=== PATIENT | female | born 2000 | race Caucasian/White ===

== ENCOUNTER 2021-11-05 18:10 | Emergency (ER) | payer OTHER ==
[~2021-11-05] VITALS: Ht 149.9 cm; Wt 52.7 kg
[2021-11-05] MEDS ORDERED: PRAZ1CAP PO (18:19)
[2021-11-05] MEDS ORDERED: LUNE2TAB23 PO (18:19)
[2021-11-05] MEDS ORDERED: CLONI1TA PO (18:19)
[2021-11-05] MEDS ORDERED: [UNRECOGNIZED DRUG - CODE] IL (18:19)
[2021-11-05] MEDS ORDERED: ZOLO50TA PO (18:19)
[2021-11-05 19:50] LABS: HEMOGLOBIN 13.5 g/dl (12.0-15.5); MEAN CORPUSCULAR HEMOGLOBIN 29.3 pg (27.0-33.0); MEAN CORPUSCULAR HGB CONC 32.9 g/dl (32.0-36.5); MEAN CORPUSCULAR VOLUME 88.9 fl (80.0-96.0); PLATELET COUNT, AUTOMATED 284 10^3/uL (150-450); RED BLOOD COUNT 4.61 10^6/uL (4.00-5.40); WHITE BLOOD COUNT 7.7 10^3/uL (4.0-10.0)
[2021-11-05 20:05] LABS: HCG, SERUM QUALITATIVE NEGATIVE (NEGATIVE)
[2021-11-05 20:20] LABS: ALBUMIN 4.3 GM/DL (3.2-5.2); ALT/SGPT 25 U/L (12-78); BILIRUBIN,DIRECT 0.1 MG/DL (0.0-0.2); BILIRUBIN,TOTAL 0.5 MG/DL (0.2-1.0); BLOOD UREA NITROGEN 11 MG/DL (7-18); CALCIUM LEVEL 9.4 MG/DL (8.5-10.1); CARBON DIOXIDE LEVEL 30 MEQ/L (21-32); CHLORIDE LEVEL 105 MEQ/L (98-107); CREATININE FOR GFR 0.94 MG/DL (0.55-1.30); ETHYL ALCOHOL (ETHANOL) < 0.003 % (0.000-0.010); GLOMERULAR FILTRATION RATE > 60.0 (>60); GLUCOSE, FASTING 94 MG/DL (70-100); POTASSIUM SERUM 4.3 MEQ/L (3.5-5.1); SALICYLATE LEVEL < 1.7 MG/DL (5.0-30.0); SODIUM LEVEL 140 MEQ/L (136-145); TOTAL PROTEIN 7.6 GM/DL (6.4-8.2)
[2021-11-05 20:21] LABS: ACETAMINOPHEN LEVEL < 2.0 UG/ML (10.0-30.0)
[2021-11-05 20:40] LABS: RSV AMPLIFICATION NEGATIVE (NEGATIVE)
[2021-11-05 21:29] LABS: AMPHETAMINES LEVEL URINE NEGATIVE (NEGATIVE); BARBITURATES URINE NEGATIVE (NEGATIVE); BENZODIAZEPINES URINE NEGATIVE (NEGATIVE); CANNABINOIDS URINE NEGATIVE (NEGATIVE); COCAINE METABOLITE URINE NEGATIVE (NEGATIVE); METHADONE URINE NEGATIVE (NEGATIVE); OPIATES URINE NEGATIVE (NEGATIVE); PHENCYCLIDINE URINE NEGATIVE (NEGATIVE)
[2021-11-05] MEDS ORDERED: NICOTINE 21MG/24HR 1 EA TRANSDERMAL TD ONE (23:05)
[2021-11-06] MEDS ORDERED: TEST1INJ3 IM (06:34)
[2021-11-06] MEDS ORDERED: HOME MED LIST COMPLETE! XX SCH (06:35)
[2021-11-06] MEDS ORDERED: hydrOXYzine 25 MG TAB PO ONE (12:40)
[2021-11-06 12:42] VITALS: BP 128/84
== END 2021-11-06 13:01 ==
LOC: M ED 18:10
DX: R45.851 Suicidal ideations (principal); F33.9 Major depressive disorder, recurrent, unspecified; Z91.51 Personal history of suicidal behavior; Z79.899 Other long term (current) drug therapy

== ENCOUNTER 2022-02-05 22:35 | Inpatient (IN) | payer OTHER ==
[~2022-02-05] VITALS: Ht 162.6 cm; Wt 56.0 kg
[~2022-02-05 22:35] MED LIST: CLONI1TA PO; LUNE2TAB23 PO; PRAZ1CAP PO; TEST1INJ3 IM; ZOLO50TA PO; [UNRECOGNIZED DRUG - CODE] IL
[2022-02-06 00:12] LABS: HEMATOCRIT 44.2 % (36.0-47.0); HEMOGLOBIN 14.5 g/dl (12.0-15.5); MEAN CORPUSCULAR HEMOGLOBIN 29.8 pg (27.0-33.0); MEAN CORPUSCULAR HGB CONC 32.8 g/dl (32.0-36.5); MEAN CORPUSCULAR VOLUME 90.9 fl (80.0-96.0); PLATELET COUNT, AUTOMATED 284 10^3/uL (150-450); RED BLOOD COUNT 4.86 10^6/uL (4.00-5.40); WHITE BLOOD COUNT 7.4 10^3/uL (4.0-10.0)
[2022-02-06 00:15] LABS: RSV AMPLIFICATION NEGATIVE (NEGATIVE)
[2022-02-06] MEDS ORDERED: LORazepam 2 MG TAB PO ONE ×2 (00:15→14:55)
[2022-02-06 00:31] LABS: HCG, SERUM QUALITATIVE NEGATIVE (NEGATIVE)
[2022-02-06] MEDS ORDERED: testosterone gel TOP (01:06)
[2022-02-06] MEDS ORDERED: CLON0.2T PO (01:06)
[2022-02-06] MEDS ORDERED: HOME MED LIST COMPLETE! XX SCH (01:10)
[2022-02-06 03:36] LABS: AMPHETAMINES LEVEL URINE NEGATIVE (NEGATIVE); BARBITURATES URINE NEGATIVE (NEGATIVE); BENZODIAZEPINES URINE NEGATIVE (NEGATIVE); CANNABINOIDS URINE NEGATIVE (NEGATIVE); COCAINE METABOLITE URINE NEGATIVE (NEGATIVE); METHADONE URINE NEGATIVE (NEGATIVE); OPIATES URINE NEGATIVE (NEGATIVE); PHENCYCLIDINE URINE NEGATIVE (NEGATIVE)
[2022-02-06 03:54] LABS: ALBUMIN 4.6 GM/DL (3.2-5.2); ALT/SGPT 21 U/L (12-78); BILIRUBIN,DIRECT 0.1 MG/DL (0.0-0.2); BILIRUBIN,TOTAL 0.5 MG/DL (0.2-1.0); BLOOD UREA NITROGEN 11 MG/DL (7-18); CALCIUM LEVEL 9.8 MG/DL (8.5-10.1); CARBON DIOXIDE LEVEL 26 MEQ/L (21-32); CHLORIDE LEVEL 105 MEQ/L (98-107); CREATININE FOR GFR 1.02 MG/DL (0.55-1.30); ETHYL ALCOHOL (ETHANOL) < 0.003 % (0.000-0.010); GLOMERULAR FILTRATION RATE > 60.0 (>60); GLUCOSE, FASTING 113 MG/DL (70-100); POTASSIUM SERUM 4.3 MEQ/L (3.5-5.1); SALICYLATE LEVEL < 1.7 MG/DL (5.0-30.0); SODIUM LEVEL 140 MEQ/L (136-145); TOTAL PROTEIN 7.8 GM/DL (6.4-8.2)
[2022-02-06] MEDS ORDERED: cloNIDine 0.2 MG TAB PO ONE (09:45)
[2022-02-06] MEDS ORDERED: SERTRALINE HCL 50 MG TAB PO ONE (09:45)
[2022-02-06] MEDS ORDERED: ACETAMINOPHEN 325 MG TAB PO ONE ×2 (21:15→21:20)
[2022-02-07] MEDS ORDERED: SERTRALINE HCL 50 MG TAB PO SCH (09:00)
[2022-02-07] MEDS ORDERED: ENTER DRUG NAME HERE (PATIENT'S OWN MED) TOP SCH (09:00)
[2022-02-07] MEDS ORDERED: FORTESTA TOP SCH (09:00)
[2022-02-07] MEDS ORDERED: cloNIDine 0.2 MG TAB PO SCH (09:00)
[2022-02-07] MEDS ORDERED: MAALOX 30 ML SUSP *UDC PO PRN (11:45)
[2022-02-07] MEDS ORDERED: traZODone 50 MG TAB PO PRN (11:45)
[2022-02-07 13:43] LABS: ACETAMINOPHEN LEVEL < 2.0 UG/ML (0.0-30.0)
[2022-02-07] MEDS: diphenhydrAMINE 25MG CAP PO PRN (15:20)
[2022-02-07] MEDS: NICOTINE 21MG/24HR 1 EA TRANSDERMAL TD SCH (15:28)
[2022-02-07 16:33] VITALS: BP 135/91
[2022-02-07] MEDS: hydrOXYzine 50 MG TAB PO PRN (18:25)
[2022-02-07] MEDS ORDERED: LORazepam 1 MG TAB PO ONE (19:50)
[2022-02-07] MEDS: cloNIDine 0.2 MG TAB PO SCH (20:32)
[2022-02-07] MEDS ORDERED: PRAZOSIN 1 MG CAP PO SCH (21:00)
[2022-02-08] MEDS: hydrOXYzine 50 MG TAB PO PRN ×2 (06:25→21:49)
[2022-02-08 06:51] VITALS: BP 112/80
[2022-02-08] MEDS ORDERED: ENTER DRUG NAME HERE (PATIENT'S OWN MED) TOP SCH (09:00)
[2022-02-08] MEDS: NICOTINE 21MG/24HR 1 EA TRANSDERMAL TD SCH (09:00)
[2022-02-08] MEDS ORDERED: SERTRALINE HCL 50 MG TAB PO SCH (09:00)
[2022-02-08] MEDS: cloNIDine 0.2 MG TAB PO SCH ×2 (09:06→21:00)
[2022-02-08] MEDS: TESTOSTERONE TOP SCH (09:11)
[2022-02-08] MEDS: MOM 30ML SUSPENSION UDC PO PRN (14:52)
[2022-02-08] MEDS: ARIPiprazole 2 MG TAB PO SCH (21:49)
[2022-02-08] MEDS: PRAZOSIN 1 MG CAP PO SCH (22:18)
[2022-02-09 06:21] VITALS: BP 149/69
[2022-02-09 07:26] LABS: CHOLESTEROL RISK RATIO 4.428 (<5)
[2022-02-09] MEDS: NICOTINE 21MG/24HR 1 EA TRANSDERMAL TD SCH (09:00)
[2022-02-09] MEDS: SERTRALINE 100 MG TAB PO SCH (09:52)
[2022-02-09] MEDS: TESTOSTERONE TOP SCH (09:57)
[2022-02-09] MEDS: cloNIDine 0.2 MG TAB PO SCH ×2 (10:00→20:45)
[2022-02-09] MEDS: LORazepam 1 MG TAB PO PRN (11:57)
[2022-02-09] MEDS: IBUPROFEN 400MG TAB PO PRN (17:52)
[2022-02-09 18:16] VITALS: BP 113/77
[2022-02-09] MEDS: ARIPiprazole 2 MG TAB PO SCH (20:45)
[2022-02-09] MEDS: QUEtiapine FUMERATE XR 50MG TABER PO SCH (20:45)
[2022-02-09] MEDS: PRAZOSIN 1 MG CAP PO SCH (20:45)
[2022-02-09] MEDS: MOM 30ML SUSPENSION UDC PO PRN (20:49)
[2022-02-10] MEDS: LORazepam 1 MG TAB PO PRN (01:30)
[2022-02-10] MEDS: NICOTINE 21MG/24HR 1 EA TRANSDERMAL TD SCH (09:00)
[2022-02-10] MEDS: SERTRALINE 100 MG TAB PO SCH (09:45)
[2022-02-10] MEDS: cloNIDine 0.2 MG TAB PO SCH ×2 (09:46→14:23)
[2022-02-10] MEDS: TESTOSTERONE TOP SCH (09:49)
[2022-02-10 16:45] VITALS: BP 141/63
[2022-02-10] MEDS: PRAZOSIN 1 MG CAP PO SCH (21:00)
[2022-02-10] MEDS: clonazePAM 0.5 MG TAB PO SCH (21:13)
[2022-02-10] MEDS: ARIPiprazole 2 MG TAB PO SCH (21:14)
[2022-02-10] MEDS: QUEtiapine FUMERATE XR 50MG TABER PO SCH (21:14)
[2022-02-10] MEDS: hydrOXYzine 50 MG TAB PO PRN (23:58)
[2022-02-10] MEDS: QUEtiapine FUMARATE 25 MG TAB PO PRN (23:58)
[2022-02-11 06:19] VITALS: BP 130/67
[2022-02-11] MEDS: NICOTINE 21MG/24HR 1 EA TRANSDERMAL TD SCH (08:52)
[2022-02-11] MEDS: clonazePAM 0.5 MG TAB PO SCH ×2 (08:54→20:57)
[2022-02-11] MEDS: SERTRALINE 100 MG TAB PO SCH (08:54)
[2022-02-11] MEDS: TESTOSTERONE TOP SCH (08:55)
[2022-02-11] MEDS: cloNIDine 0.2 MG TAB PO SCH (09:00)
[2022-02-11] MEDS: hydrOXYzine 50 MG TAB PO PRN ×2 (11:52→19:43)
[2022-02-11 18:16] VITALS: BP 153/98
[2022-02-11] MEDS: IBUPROFEN 400MG TAB PO PRN (20:58)
[2022-02-11] MEDS: ARIPiprazole 2 MG TAB PO SCH (20:58)
[2022-02-11] MEDS: QUEtiapine FUMARATE 25 MG TAB PO SCH (20:59)
[2022-02-11] MEDS: PRAZOSIN 1 MG CAP PO SCH (21:03)
[2022-02-11] MEDS ORDERED: cloNIDine 0.1MG TABLET PO ONE (21:45)
[2022-02-12 06:19] VITALS: BP 144/68
[2022-02-12] MEDS: NICOTINE 21MG/24HR 1 EA TRANSDERMAL TD SCH (09:00)
[2022-02-12] MEDS: SERTRALINE 100 MG TAB PO SCH (09:07)
[2022-02-12] MEDS: clonazePAM 0.5 MG TAB PO SCH ×2 (09:07→21:58)
[2022-02-12] MEDS: TESTOSTERONE TOP SCH (09:07)
[2022-02-12] MEDS: QUEtiapine FUMARATE 25 MG TAB PO PRN (12:55)
[2022-02-12 18:00] VITALS: BP 142/86
[2022-02-12] MEDS: PRAZOSIN 1 MG CAP PO SCH (21:58)
[2022-02-12] MEDS: QUEtiapine FUMARATE 25 MG TAB PO SCH (21:58)
[2022-02-12] MEDS: ARIPiprazole 2 MG TAB PO SCH (21:58)
[2022-02-13] MEDS: hydrOXYzine 50 MG TAB PO PRN ×3 (02:54→19:41)
[2022-02-13 06:58] VITALS: BP 139/82
[2022-02-13] MEDS: SERTRALINE 100 MG TAB PO SCH (08:47)
[2022-02-13] MEDS: NICOTINE 21MG/24HR 1 EA TRANSDERMAL TD SCH (08:47)
[2022-02-13] MEDS: clonazePAM 0.5 MG TAB PO SCH ×2 (08:47→21:10)
[2022-02-13] MEDS: TESTOSTERONE TOP SCH (09:12)
[2022-02-13] MEDS: diphenhydrAMINE 25MG CAP PO PRN ×2 (09:32→19:41)
[2022-02-13] MEDS: QUEtiapine FUMARATE 25 MG TAB PO PRN (09:32)
[2022-02-13] MEDS: ARIPiprazole 2 MG TAB PO SCH (21:10)
[2022-02-13] MEDS: PRAZOSIN 1 MG CAP PO SCH (21:10)
[2022-02-13] MEDS: QUEtiapine FUMARATE 25 MG TAB PO SCH (21:11)
[2022-02-14 06:12] VITALS: BP 148/89
[2022-02-14] MEDS: clonazePAM 0.5 MG TAB PO SCH ×2 (09:00→20:15)
[2022-02-14] MEDS: SERTRALINE 100 MG TAB PO SCH (09:00)
[2022-02-14] MEDS: NICOTINE 21MG/24HR 1 EA TRANSDERMAL TD SCH (09:00)
[2022-02-14] MEDS: TESTOSTERONE TOP SCH (11:26)
[2022-02-14] MEDS: hydrOXYzine 50 MG TAB PO PRN ×2 (12:59→23:44)
[2022-02-14] MEDS: MOM 30ML SUSPENSION UDC PO PRN (14:33)
[2022-02-14 16:12] VITALS: BP 123/90
[2022-02-14] MEDS: QUEtiapine FUMARATE 25 MG TAB PO SCH (20:15)
[2022-02-14] MEDS: ARIPiprazole 2 MG TAB PO SCH (20:15)
[2022-02-14] MEDS: PRAZOSIN 1 MG CAP PO SCH (20:16)
[2022-02-14] MEDS: diphenhydrAMINE 25MG CAP PO PRN (23:44)
[2022-02-15 06:15] VITALS: BP 128/88
[2022-02-15] MEDS: NICOTINE 21MG/24HR 1 EA TRANSDERMAL TD SCH (09:00)
[2022-02-15] MEDS: clonazePAM 0.5 MG TAB PO SCH ×2 (09:02→20:22)
[2022-02-15] MEDS: SERTRALINE 100 MG TAB PO SCH (09:02)
[2022-02-15] MEDS: TESTOSTERONE TOP SCH (09:09)
[2022-02-15] MEDS: hydrOXYzine 50 MG TAB PO PRN (15:20)
[2022-02-15 16:22] VITALS: BP 134/84
[2022-02-15] MEDS: QUEtiapine FUMARATE 25 MG TAB PO PRN (19:17)
[2022-02-15] MEDS: diphenhydrAMINE 25MG CAP PO PRN (19:17)
[2022-02-15] MEDS: QUEtiapine FUMARATE 25 MG TAB PO SCH (20:21)
[2022-02-15] MEDS: ARIPiprazole 2 MG TAB PO SCH (20:21)
[2022-02-15] MEDS: PRAZOSIN 1 MG CAP PO SCH (20:22)
[2022-02-16 06:36] VITALS: BP 137/76
[2022-02-16] MEDS: SERTRALINE 100 MG TAB PO SCH (07:50)
[2022-02-16] MEDS: clonazePAM 0.5 MG TAB PO SCH (07:51)
[2022-02-16] MEDS: TESTOSTERONE TOP SCH (07:52)
[2022-02-16] MEDS: NICOTINE 21MG/24HR 1 EA TRANSDERMAL TD SCH (07:53)
[2022-02-16 16:13] VITALS: BP 134/85
[2022-02-16] MEDS: QUEtiapine FUMARATE 25 MG TAB PO PRN (17:37)
[2022-02-16] MEDS: diphenhydrAMINE 25MG CAP PO PRN (17:37)
[2022-02-16] MEDS: hydrOXYzine 50 MG TAB PO PRN (20:41)
[2022-02-16] MEDS: ARIPiprazole 2 MG TAB PO SCH (20:42)
[2022-02-16] MEDS: QUEtiapine FUMARATE 25 MG TAB PO SCH (20:42)
[2022-02-16] MEDS: clonazePAM 1 MG TAB PO SCH (20:42)
[2022-02-16] MEDS: MOM 30ML SUSPENSION UDC PO PRN (20:49)
[2022-02-16] MEDS: PRAZOSIN 1 MG CAP PO SCH (20:49)
[2022-02-17 07:21] VITALS: BP 154/88
[2022-02-17] MEDS: NICOTINE 21MG/24HR 1 EA TRANSDERMAL TD SCH (07:57)
[2022-02-17] MEDS: clonazePAM 1 MG TAB PO SCH ×2 (08:03→21:10)
[2022-02-17] MEDS: SERTRALINE 100 MG TAB PO SCH (08:03)
[2022-02-17] MEDS: TESTOSTERONE TOP SCH (08:06)
[2022-02-17] MEDS: QUEtiapine FUMARATE 25 MG TAB PO PRN (15:48)
[2022-02-17] MEDS: hydrOXYzine 50 MG TAB PO PRN (15:48)
[2022-02-17 17:05] VITALS: BP 140/87
[2022-02-17] MEDS: ARIPiprazole 2 MG TAB PO SCH (21:10)
[2022-02-17] MEDS: QUEtiapine FUMARATE 25 MG TAB PO SCH (21:10)
[2022-02-17] MEDS: PRAZOSIN 1 MG CAP PO SCH (21:10)
[2022-02-17] MEDS: IBUPROFEN 400MG TAB PO PRN (21:18)
[2022-02-18 06:09] VITALS: BP 142/90
[2022-02-18] MEDS: NICOTINE 21MG/24HR 1 EA TRANSDERMAL TD SCH (09:00)
[2022-02-18] MEDS: clonazePAM 1 MG TAB PO SCH ×2 (09:22→20:14)
[2022-02-18] MEDS: SERTRALINE 100 MG TAB PO SCH (09:22)
[2022-02-18] MEDS: TESTOSTERONE TOP SCH (09:24)
[2022-02-18] MEDS: DOCUSATE SODIUM 100MG CAPSULE PO PRN (14:08)
[2022-02-18 16:50] VITALS: BP 134/95
[2022-02-18] MEDS: hydrOXYzine 50 MG TAB PO PRN (17:10)
[2022-02-18 20:12] VITALS: BP 117/84
[2022-02-18] MEDS: ARIPiprazole 2 MG TAB PO SCH (20:14)
[2022-02-18] MEDS: QUEtiapine FUMARATE 25 MG TAB PO SCH (20:15)
[2022-02-18] MEDS: PRAZOSIN 1 MG CAP PO SCH (20:15)
[2022-02-19 06:00] VITALS: BP 144/76
[2022-02-19] MEDS: TESTOSTERONE TOP SCH (07:45)
[2022-02-19] MEDS: clonazePAM 1 MG TAB PO SCH ×2 (07:45→21:12)
[2022-02-19] MEDS: SERTRALINE 100 MG TAB PO SCH (07:46)
[2022-02-19] MEDS: NICOTINE 21MG/24HR 1 EA TRANSDERMAL TD SCH (07:46)
[2022-02-19 16:54] VITALS: BP 134/98
[2022-02-19] MEDS: QUEtiapine FUMARATE 25 MG TAB PO PRN (18:55)
[2022-02-19] MEDS: DOCUSATE SODIUM 100MG CAPSULE PO PRN (18:55)
[2022-02-19] MEDS: MOM 30ML SUSPENSION UDC PO PRN (21:12)
[2022-02-19] MEDS: ARIPiprazole 2 MG TAB PO SCH (21:13)
[2022-02-19] MEDS: QUEtiapine FUMARATE 25 MG TAB PO SCH (21:13)
[2022-02-19] MEDS: PRAZOSIN 1 MG CAP PO SCH (21:13)
[2022-02-20 06:24] VITALS: BP 118/81
[2022-02-20] MEDS: NICOTINE 21MG/24HR 1 EA TRANSDERMAL TD SCH (09:00)
[2022-02-20] MEDS: SERTRALINE 100 MG TAB PO SCH (09:30)
[2022-02-20] MEDS: clonazePAM 1 MG TAB PO SCH ×2 (09:30→22:17)
[2022-02-20] MEDS: TESTOSTERONE TOP SCH (09:33)
[2022-02-20] MEDS: IBUPROFEN 400MG TAB PO PRN (14:50)
[2022-02-20 16:12] VITALS: BP 135/83
[2022-02-20] MEDS: diphenhydrAMINE 25MG CAP PO PRN (19:20)
[2022-02-20] MEDS: QUEtiapine FUMARATE 25 MG TAB PO PRN (19:20)
[2022-02-20] MEDS: QUEtiapine FUMARATE 25 MG TAB PO SCH (22:17)
[2022-02-20] MEDS: ARIPiprazole 2 MG TAB PO SCH (22:17)
[2022-02-20] MEDS: PRAZOSIN 1 MG CAP PO SCH (22:18)
[2022-02-21 07:12] VITALS: BP 143/73
[2022-02-21] MEDS: NICOTINE 21MG/24HR 1 EA TRANSDERMAL TD SCH (09:00)
[2022-02-21] MEDS: TESTOSTERONE TOP SCH (09:30)
[2022-02-21] MEDS: clonazePAM 1 MG TAB PO SCH ×2 (09:34→21:07)
[2022-02-21] MEDS: SERTRALINE 100 MG TAB PO SCH (09:35)
[2022-02-21] MEDS: QUEtiapine FUMARATE 25 MG TAB PO PRN (13:45)
[2022-02-21] MEDS: clonazePAM 0.5 MG TAB PO SCH (14:02)
[2022-02-21 21:07] VITALS: BP 137/94
[2022-02-21] MEDS: PRAZOSIN 1 MG CAP PO SCH (21:07)
[2022-02-21] MEDS: QUEtiapine FUMARATE 25 MG TAB PO SCH (21:07)
[2022-02-21] MEDS: ARIPiprazole 2 MG TAB PO SCH (21:08)
[2022-02-22 06:00] VITALS: BP 125/74
[2022-02-22] MEDS: DOCUSATE SODIUM 100MG CAPSULE PO PRN (08:03)
[2022-02-22] MEDS: SERTRALINE 100 MG TAB PO SCH (08:03)
[2022-02-22] MEDS: clonazePAM 1 MG TAB PO SCH (08:04)
[2022-02-22] MEDS: TESTOSTERONE TOP SCH (08:06)
[2022-02-22] MEDS: NICOTINE 21MG/24HR 1 EA TRANSDERMAL TD SCH (08:07)
[2022-02-22] MEDS ORDERED: MINI1CAP PO (13:31)
[2022-02-22] MEDS ORDERED: [UNRECOGNIZED DRUG - OTHER] TOP (13:31)
[2022-02-22] MEDS ORDERED: ZOLO100T PO (13:31)
[2022-02-22] MEDS ORDERED: QUET1TAB17 PO ×2 (13:31)
[2022-02-22] MEDS ORDERED: CLON0.5T2 PO (13:31)
[2022-02-22] MEDS ORDERED: NICO21PAT TD (13:31)
[2022-02-22] MEDS ORDERED: ABIL1TAB13 PO (13:31)
[2022-02-22] MEDS ORDERED: CLON1TAB8 PO (13:31)
[2022-02-22] MEDS: clonazePAM 0.5 MG TAB PO SCH (14:47)
== END 2022-02-22 19:00 | disposition home or self-care (01) | DRG 885 ==
LOC: M ED 22:35 → M ED INP 02-07 11:42 → M PSY 02-07 16:08
PROVIDERS: ADMIT Student in an Organized Health Care Education/Training Program; ATTEND Student in an Organized Health Care Education/Training Program
DX: F33.2 Major depressive disorder, recurrent severe without psychotic features (principal); F43.10 Post-traumatic stress disorder, unspecified; F41.0 Panic disorder [episodic paroxysmal anxiety]; F60.89 Other specific personality disorders; F81.9 Developmental disorder of scholastic skills, unspecified; F60.3 Borderline personality disorder; Z87.890 Personal history of sex reassignment; Z62.810 Personal history of physical and sexual abuse in childhood; Z79.899 Other long term (current) drug therapy; Z88.0 Allergy status to penicillin; Z91.410 Personal history of adult physical and sexual abuse; F95.8 Other tic disorders; M41.9 Scoliosis, unspecified

== ENCOUNTER 2022-04-29 16:10 | Inpatient (IN) | payer OTHER ==
[~2022-04-29] VITALS: Ht 149.9 cm; Wt 52.3 kg
[~2022-04-29 16:10] MED LIST changes: +ABIL1TAB13 PO; +CLON0.2T PO; +CLON0.5T2 PO; +CLON1TAB8 PO; +MINI1CAP PO; +NICO21PAT TD; +QUET1TAB17 PO; +ZOLO100T PO; +[UNRECOGNIZED DRUG - OTHER] TOP; +testosterone gel TOP
[2022-04-29 18:57] LABS: HEMATOCRIT 41.7 % (42.0-52.0); HEMOGLOBIN 13.4 g/dl (13.5-17.5); MEAN CORPUSCULAR HEMOGLOBIN 29.6 pg (27.0-33.0); MEAN CORPUSCULAR HGB CONC 32.1 g/dl (32.0-36.5); MEAN CORPUSCULAR VOLUME 92.1 fl (80.0-96.0); PLATELET COUNT, AUTOMATED 266 10^3/uL (150-450); RED BLOOD COUNT 4.53 10^6/uL (4.30-6.10); WHITE BLOOD COUNT 9.1 10^3/uL (4.0-10.0)
[2022-04-29 19:34] LABS: ACETAMINOPHEN LEVEL < 2.0 UG/ML (10.0-30.0); ALBUMIN 3.9 GM/DL (3.2-5.2); ALT/SGPT 55 U/L (12-78); BILIRUBIN,DIRECT 0.3 MG/DL (0.0-0.2); BILIRUBIN,TOTAL 0.6 MG/DL (0.2-1.0); BLOOD UREA NITROGEN 13 MG/DL (7-18); CALCIUM LEVEL 9.4 MG/DL (8.5-10.1); CARBON DIOXIDE LEVEL 26 MEQ/L (21-32); CHLORIDE LEVEL 106 MEQ/L (98-107); CREATININE FOR GFR 0.83 MG/DL (0.70-1.30); ETHYL ALCOHOL (ETHANOL) < 0.003 % (0.000-0.010); GLOMERULAR FILTRATION RATE > 60.0 (>60); GLUCOSE, FASTING 90 MG/DL (70-100); POTASSIUM SERUM 4.1 MEQ/L (3.5-5.1); SALICYLATE LEVEL < 1.7 MG/DL (5.0-30.0); SODIUM LEVEL 137 MEQ/L (136-145); TOTAL PROTEIN 7.1 GM/DL (6.4-8.2)
[2022-04-29 19:55] LABS: RSV AMPLIFICATION NEGATIVE (NEGATIVE)
[2022-04-29] MEDS ORDERED: ZYPR5TAB2 PO (20:42)
[2022-04-29] MEDS ORDERED: ABIL1TAB11 PO ×2 (20:42)
[2022-04-29] MEDS ORDERED: ZOLO100T PO (20:42)
[2022-04-29] MEDS ORDERED: LITH300C PO (20:42)
[2022-04-29] MEDS ORDERED: PRAZ5CAP PO (20:42)
[2022-04-29] MEDS ORDERED: LUNE2TAB23 PO (20:42)
[2022-04-29] MEDS ORDERED: CLONI1TA PO (20:54)
[2022-04-29] MEDS ORDERED: HOME MED LIST COMPLETE! XX SCH (20:55)
[2022-04-29] MEDS ORDERED: ARIPiprazole 2 MG TAB PO SCH (21:00)
[2022-04-29 21:16] LABS: AMPHETAMINES LEVEL URINE NEGATIVE (NEGATIVE); BARBITURATES URINE NEGATIVE (NEGATIVE); BENZODIAZEPINES URINE NEGATIVE (NEGATIVE); CANNABINOIDS URINE NEGATIVE (NEGATIVE); COCAINE METABOLITE URINE NEGATIVE (NEGATIVE); METHADONE URINE NEGATIVE (NEGATIVE); OPIATES URINE NEGATIVE (NEGATIVE); PHENCYCLIDINE URINE NEGATIVE (NEGATIVE)
[2022-04-29 21:22] LABS: LITHIUM LEVEL 0.53 MEQ/L (0.60-1.20)
[2022-04-29] MEDS: PRAZOSIN 1 MG CAP PO SCH (22:01)
[2022-04-29] MEDS: LITHIUM CARBONATE 300 MG CAP PO SCH (22:01)
[2022-04-29] MEDS: ARIPiprazole 2 MG TAB PO SCH (22:01)
[2022-04-30] MEDS ORDERED: ENTER DRUG NAME HERE (PATIENT'S OWN MED) XX SCH (09:00)
[2022-04-30] MEDS: LITHIUM CARBONATE 300 MG CAP PO SCH ×2 (10:13→20:42)
[2022-04-30] MEDS: OLANZapine 5 MG TAB PO SCH (10:13)
[2022-04-30] MEDS: SERTRALINE 100 MG TAB PO SCH (10:13)
[2022-04-30] MEDS: TESTOSTERONE TOP SCH (11:55)
[2022-04-30] MEDS ORDERED: LORazepam 2 MG TAB PO STA (15:57)
[2022-04-30] MEDS ORDERED: diphenhydrAMINE 25MG CAP PO ONE (20:40)
[2022-04-30] MEDS: ARIPiprazole 2 MG TAB PO SCH (20:42)
[2022-04-30] MEDS: PRAZOSIN 1 MG CAP PO SCH (20:42)
[2022-05-01] MEDS: LITHIUM CARBONATE 300 MG CAP PO SCH ×2 (08:12→22:19)
[2022-05-01] MEDS: SERTRALINE 100 MG TAB PO SCH (08:12)
[2022-05-01] MEDS: OLANZapine 5 MG TAB PO SCH (08:12)
[2022-05-01] MEDS: TESTOSTERONE TOP SCH (08:13)
[2022-05-01] MEDS ORDERED: LORazepam 2 MG TAB PO STA ×2 (11:35→18:25)
[2022-05-01] MEDS: ARIPiprazole 2 MG TAB PO SCH (22:18)
[2022-05-01] MEDS: PRAZOSIN 1 MG CAP PO SCH (22:19)
[2022-05-02] MEDS: SERTRALINE 100 MG TAB PO SCH (08:47)
[2022-05-02] MEDS: LITHIUM CARBONATE 300 MG CAP PO SCH ×2 (08:49→20:42)
[2022-05-02] MEDS: OLANZapine 5 MG TAB PO SCH (08:49)
[2022-05-02] MEDS: TESTOSTERONE TOP SCH (09:00)
[2022-05-02] MEDS ORDERED: LORazepam 2 MG TAB PO STA (17:19)
[2022-05-02] MEDS: ARIPiprazole 2 MG TAB PO SCH ×2 (17:23→20:40)
[2022-05-02] MEDS: PRAZOSIN 1 MG CAP PO SCH (20:41)
[2022-05-02] MEDS: LORazepam 1 MG TAB PO PRN (20:45)
[2022-05-03] MEDS: SERTRALINE 100 MG TAB PO SCH (09:09)
[2022-05-03] MEDS: LITHIUM CARBONATE 300 MG CAP PO SCH ×2 (09:09→20:29)
[2022-05-03] MEDS: OLANZapine 5 MG TAB PO SCH ×2 (09:09→20:29)
[2022-05-03] MEDS: TESTOSTERONE TOP SCH (09:10)
[2022-05-03] MEDS: LORazepam 1 MG TAB PO PRN ×2 (13:51→17:02)
[2022-05-03] MEDS: NICOTINE 21MG/24HR 1 EA TRANSDERMAL TD SCH (13:52)
[2022-05-03] MEDS ORDERED: LORazepam 2 MG TAB PO STA (16:42)
[2022-05-03] MEDS: ARIPiprazole 2 MG TAB PO SCH (20:29)
[2022-05-03] MEDS: PRAZOSIN 1 MG CAP PO SCH (20:29)
[2022-05-04] MEDS: OLANZapine 5 MG TAB PO SCH ×2 (08:13→21:17)
[2022-05-04] MEDS: SERTRALINE 100 MG TAB PO SCH (08:14)
[2022-05-04] MEDS: NICOTINE 21MG/24HR 1 EA TRANSDERMAL TD SCH (08:14)
[2022-05-04] MEDS: LITHIUM CARBONATE 300 MG CAP PO SCH ×2 (08:14→21:17)
[2022-05-04] MEDS: TESTOSTERONE TOP SCH (08:15)
[2022-05-04] MEDS: LORazepam 1 MG TAB PO PRN (12:07)
[2022-05-04] MEDS ORDERED: MOM 30ML SUSPENSION UDC PO PRN (12:30)
[2022-05-04] MEDS ORDERED: MAALOX 30 ML SUSP *UDC PO PRN (12:30)
[2022-05-04] MEDS ORDERED: IBUPROFEN 400MG TAB PO PRN (12:30)
[2022-05-04] MEDS ORDERED: [UNRECOGNIZED DRUG - OTHER] As Ordered ONE (13:34)
[2022-05-04 15:09] VITALS: BP 119/74
[2022-05-04] MEDS ORDERED: NICOTINE 21MG/24HR 1 EA TRANSDERMAL TD ONE (16:55)
[2022-05-04] MEDS: cloNIDine 0.1MG TABLET PO SCH (17:09)
[2022-05-04] MEDS: PRAZOSIN 1 MG CAP PO SCH (21:16)
[2022-05-04] MEDS: ARIPiprazole 2 MG TAB PO SCH (21:17)
[2022-05-04] MEDS: OLANZapine ORAL DISINTEGRATING TAB 5MG PO PRN (22:33)
[2022-05-05] MEDS ORDERED: LORazepam 1 MG TAB PO ONE
[2022-05-05 06:31] VITALS: BP 113/60
[2022-05-05] MEDS: OLANZapine 5 MG TAB PO SCH ×2 (10:05→21:56)
[2022-05-05] MEDS: SERTRALINE 100 MG TAB PO SCH (10:05)
[2022-05-05] MEDS: NICOTINE 21MG/24HR 1 EA TRANSDERMAL TD SCH (10:06)
[2022-05-05] MEDS: LITHIUM CARBONATE 300 MG CAP PO SCH ×2 (10:07→21:56)
[2022-05-05] MEDS: TESTOSTERONE TOP SCH (10:13)
[2022-05-05] MEDS: cloNIDine 0.1MG TABLET PO SCH (10:21)
[2022-05-05] MEDS: MIRALAX *UNIT DOSE* 17GM PACKET PO SCH (16:51)
[2022-05-05] MEDS: OLANZapine ORAL DISINTEGRATING TAB 5MG PO PRN ×2 (16:51→21:56)
[2022-05-05 17:37] VITALS: BP 110/68
[2022-05-05] MEDS: ARIPiprazole 2 MG TAB PO SCH (21:56)
[2022-05-05] MEDS: PRAZOSIN 1 MG CAP PO SCH (21:56)
[2022-05-06 06:16] VITALS: BP 107/70
[2022-05-06] MEDS: NICOTINE 21MG/24HR 1 EA TRANSDERMAL TD SCH (09:42)
[2022-05-06] MEDS: SERTRALINE 100 MG TAB PO SCH (09:42)
[2022-05-06] MEDS: MIRALAX *UNIT DOSE* 17GM PACKET PO SCH (09:42)
[2022-05-06] MEDS: OLANZapine 5 MG TAB PO SCH ×2 (09:42→20:34)
[2022-05-06] MEDS: cloNIDine 0.1MG TABLET PO SCH (09:43)
[2022-05-06] MEDS: LITHIUM CARBONATE 300 MG CAP PO SCH ×2 (09:43→20:34)
[2022-05-06] MEDS: TESTOSTERONE TOP SCH (09:45)
[2022-05-06] MEDS: OLANZapine ORAL DISINTEGRATING TAB 5MG PO PRN ×2 (14:01→21:22)
[2022-05-06 17:00] VITALS: BP 135/63
[2022-05-06] MEDS: PRAZOSIN 1 MG CAP PO SCH (20:34)
[2022-05-06] MEDS: ARIPiprazole 2 MG TAB PO SCH (20:34)
[2022-05-07 07:12] VITALS: BP 107/59
[2022-05-07 07:53] LABS: CHOLESTEROL RISK RATIO 3.878 (<5)
[2022-05-07] MEDS: NICOTINE 21MG/24HR 1 EA TRANSDERMAL TD SCH (09:50)
[2022-05-07] MEDS: MIRALAX *UNIT DOSE* 17GM PACKET PO SCH (09:50)
[2022-05-07] MEDS: LITHIUM CARBONATE 300 MG CAP PO SCH ×2 (09:52→20:40)
[2022-05-07] MEDS: OLANZapine 5 MG TAB PO SCH ×2 (09:52→20:44)
[2022-05-07] MEDS: cloNIDine 0.1MG TABLET PO SCH (09:52)
[2022-05-07] MEDS: TESTOSTERONE TOP SCH (09:52)
[2022-05-07] MEDS: SERTRALINE 100 MG TAB PO SCH (09:53)
[2022-05-07] MEDS: OLANZapine ORAL DISINTEGRATING TAB 5MG PO PRN (17:32)
[2022-05-07 18:31] VITALS: BP 113/64
[2022-05-07] MEDS: ARIPiprazole 2 MG TAB PO SCH (20:40)
[2022-05-07] MEDS: PRAZOSIN 1 MG CAP PO SCH (20:44)
[2022-05-08 06:36] VITALS: BP 125/71
[2022-05-08] MEDS: NICOTINE 21MG/24HR 1 EA TRANSDERMAL TD SCH (09:00)
[2022-05-08] MEDS: OLANZapine 5 MG TAB PO SCH ×2 (09:00→21:32)
[2022-05-08] MEDS: SERTRALINE 100 MG TAB PO SCH (09:00)
[2022-05-08] MEDS: LITHIUM CARBONATE 300 MG CAP PO SCH ×2 (09:01→21:33)
[2022-05-08] MEDS: cloNIDine 0.1MG TABLET PO SCH (09:01)
[2022-05-08] MEDS: TESTOSTERONE TOP SCH (09:04)
[2022-05-08] MEDS: MIRALAX *UNIT DOSE* 17GM PACKET PO SCH (11:45)
[2022-05-08] MEDS: OLANZapine ORAL DISINTEGRATING TAB 5MG PO PRN (14:26)
[2022-05-08 17:53] VITALS: BP 111/72
[2022-05-08] MEDS: PRAZOSIN 1 MG CAP PO SCH (21:32)
[2022-05-08] MEDS: ARIPiprazole 2 MG TAB PO SCH (21:33)
[2022-05-08] MEDS ORDERED: BISACODYL 5 MG TAB PO PRN (22:00)
[2022-05-08] MEDS: DOCUSATE SODIUM 100MG CAPSULE PO SCH (22:15)
[2022-05-08] MEDS ORDERED: traZODone 50 MG TAB PO PRN (22:30)
[2022-05-09 08:41] VITALS: BP 115/59
[2022-05-09] MEDS ORDERED: ZYPR5TAB2 PO (09:11)
[2022-05-09] MEDS: LITHIUM CARBONATE 300 MG CAP PO SCH (09:30)
[2022-05-09 09:31] VITALS: BP 110/68
[2022-05-09] MEDS: SERTRALINE 100 MG TAB PO SCH (09:31)
[2022-05-09] MEDS: DOCUSATE SODIUM 100MG CAPSULE PO SCH (09:31)
[2022-05-09] MEDS: cloNIDine 0.1MG TABLET PO SCH (09:31)
[2022-05-09] MEDS: NICOTINE 21MG/24HR 1 EA TRANSDERMAL TD SCH (09:32)
[2022-05-09] MEDS: OLANZapine 5 MG TAB PO SCH (09:32)
[2022-05-09] MEDS: MIRALAX *UNIT DOSE* 17GM PACKET PO SCH (09:32)
[2022-05-09] MEDS: TESTOSTERONE TOP SCH (10:32)
== END 2022-05-09 13:38 | disposition home or self-care (01) | DRG 885 ==
LOC: M ED 16:10 → M ED INP 05-04 12:01 → M PSY 05-04 14:44
PROVIDERS: ADMIT Psychiatry & Neurology Psychiatry; ATTEND Psychiatry & Neurology Psychiatry
DX: F33.1 Major depressive disorder, recurrent, moderate (principal); R45.851 Suicidal ideations; F43.10 Post-traumatic stress disorder, unspecified; F40.11 Social phobia, generalized; F50.9 Eating disorder, unspecified; F60.9 Personality disorder, unspecified; K58.1 Irritable bowel syndrome with constipation; M41.9 Scoliosis, unspecified; F17.210 Nicotine dependence, cigarettes, uncomplicated; Z20.822 Contact with and (suspected) exposure to COVID-19; Z79.890 Hormone replacement therapy; Z79.899 Other long term (current) drug therapy; Z91.52 Personal history of nonsuicidal self-harm; Z88.0 Allergy status to penicillin

== ENCOUNTER 2022-06-16 13:52 | Inpatient (IN) | payer OTHER ==
[~2022-06-16] VITALS: Ht 149.9 cm; Wt 63.5 kg
[~2022-06-16 13:52] MED LIST changes: +ABIL1TAB11 PO; +LITH300C PO; +PRAZ5CAP PO; +ZYPR5TAB2 PO
[2022-06-16] MEDS ORDERED: GUAN1TA PO (14:00)
[2022-06-16] MEDS ORDERED: DICY10SO PO (14:00)
[2022-06-16] MEDS ORDERED: BENZ0.5T23 PO (14:00)
[2022-06-16 15:41] LABS: HEMATOCRIT 42.4 % (42.0-52.0); HEMOGLOBIN 13.6 g/dl (13.5-17.5); MEAN CORPUSCULAR HEMOGLOBIN 29.4 pg (27.0-33.0); MEAN CORPUSCULAR HGB CONC 32.1 g/dl (32.0-36.5); MEAN CORPUSCULAR VOLUME 91.8 fl (80.0-96.0); PLATELET COUNT, AUTOMATED 258 10^3/uL (150-450); RED BLOOD COUNT 4.62 10^6/uL (4.30-6.10)
[2022-06-16 16:17] LABS: ACETAMINOPHEN LEVEL < 2.0 UG/ML (10.0-30.0); ALBUMIN 4.1 GM/DL (3.2-5.2); ALT/SGPT 15 U/L (12-78); BILIRUBIN,DIRECT 0.2 MG/DL (0.0-0.2); BILIRUBIN,TOTAL 0.4 MG/DL (0.2-1.0); BLOOD UREA NITROGEN 8 MG/DL (7-18); CALCIUM LEVEL 8.8 MG/DL (8.5-10.1); CARBON DIOXIDE LEVEL 27 MEQ/L (21-32); CHLORIDE LEVEL 108 MEQ/L (98-107); CREATININE FOR GFR 0.91 MG/DL (0.70-1.30); ETHYL ALCOHOL (ETHANOL) < 0.003 % (0.000-0.010); GLOMERULAR FILTRATION RATE > 60.0 (>60); GLUCOSE, FASTING 94 MG/DL (70-100); SALICYLATE LEVEL < 1.7 MG/DL (5.0-30.0); SODIUM LEVEL 139 MEQ/L (136-145); TOTAL PROTEIN 7.2 GM/DL (6.4-8.2)
[2022-06-16 16:20] LABS: RSV AMPLIFICATION NEGATIVE (NEGATIVE)
[2022-06-16 16:31] LABS: AMPHETAMINES LEVEL URINE NEGATIVE (NEGATIVE); BARBITURATES URINE NEGATIVE (NEGATIVE); BENZODIAZEPINES URINE POSITIVE (NEGATIVE); CANNABINOIDS URINE NEGATIVE (NEGATIVE); COCAINE METABOLITE URINE NEGATIVE (NEGATIVE); METHADONE URINE NEGATIVE (NEGATIVE); OPIATES URINE NEGATIVE (NEGATIVE); PHENCYCLIDINE URINE NEGATIVE (NEGATIVE)
[2022-06-16] MEDS ORDERED: MOM 30ML SUSPENSION UDC PO PRN (18:00)
[2022-06-16] MEDS ORDERED: MAALOX 30 ML SUSP *UDC PO PRN (18:00)
[2022-06-16] MEDS ORDERED: ACETAMINOPHEN TAB 650MG DOSE (2X325MG) PO PRN (18:00)
[2022-06-16 22:12] VITALS: BP 122/74
[2022-06-17] MEDS: traZODone 50 MG TAB PO PRN ×2 (00:25→20:39)
[2022-06-17] MEDS: ARIPiprazole 2 MG TAB PO SCH ×2 (00:26→20:37)
[2022-06-17] MEDS: LITHIUM CARBONATE 300 MG CAP PO SCH ×3 (00:26→20:36)
[2022-06-17] MEDS: PRAZOSIN 1 MG CAP PO SCH ×2 (00:26→20:36)
[2022-06-17 06:19] VITALS: BP 122/65
[2022-06-17] MEDS: SERTRALINE 100 MG TAB PO SCH (08:28)
[2022-06-17] MEDS: NICOTINE 21MG/24HR 1 EA TRANSDERMAL TD SCH ×2 (08:29→11:30)
[2022-06-17] MEDS ORDERED: ENTER DRUG NAME HERE (PATIENT'S OWN MED) TOP SCH (09:00)
[2022-06-17] MEDS ORDERED: ARIP1TAB4 PO (10:41)
[2022-06-17] MEDS ORDERED: DICY10CA13 PO (10:49)
[2022-06-17] MEDS ORDERED: TEST1GEL10 TD (10:52)
[2022-06-17] MEDS ORDERED: GUAN1TAB16 PO (10:54)
[2022-06-17] MEDS ORDERED: HOME MED LIST COMPLETE! XX SCH (11:00)
[2022-06-17] MEDS: cloNIDine 0.1MG TABLET PO SCH ×2 (11:18→20:37)
[2022-06-17] MEDS: TESTOSTERONE TOP SCH (11:32)
[2022-06-17] MEDS: [UNRECOGNIZED DRUG - OTHER] TOP SCH (11:32)
[2022-06-17 17:59] VITALS: BP 111/59
[2022-06-17] MEDS: hydrOXYzine 50 MG TAB PO PRN (18:00)
[2022-06-17] MEDS ORDERED: hydrOXYzine 50 MG TAB PO SCH (18:00)
[2022-06-17] MEDS ORDERED: MIRTAZAPINE 7.5MG PER 1/2 TABLET PO SCH (21:00)
[2022-06-18] MEDS ORDERED: UNRESOLVED PATIENT OWN MED ORDER XX SCH (00:01)
[2022-06-18 06:32] VITALS: BP 110/66
[2022-06-18] MEDS: SERTRALINE 100 MG TAB PO SCH (08:40)
[2022-06-18] MEDS: LITHIUM CARBONATE 300 MG CAP PO SCH ×2 (08:41→19:44)
[2022-06-18] MEDS: cloNIDine 0.1MG TABLET PO SCH ×2 (08:41→19:43)
[2022-06-18] MEDS: NICOTINE 21MG/24HR 1 EA TRANSDERMAL TD SCH (08:42)
[2022-06-18] MEDS: TESTOSTERONE TOP SCH (08:46)
[2022-06-18] MEDS: [UNRECOGNIZED DRUG - OTHER] TOP SCH (08:46)
[2022-06-18] MEDS: hydrOXYzine 50 MG TAB PO PRN (10:47)
[2022-06-18] MEDS: DOCUSATE SODIUM 100MG CAPSULE PO PRN (15:20)
[2022-06-18 18:00] VITALS: BP 105/64
[2022-06-18] MEDS: PRAZOSIN 1 MG CAP PO SCH (19:42)
[2022-06-18] MEDS: traZODone 50 MG TAB PO PRN (19:43)
[2022-06-18] MEDS: MIRTAZAPINE 15 MG TAB PO SCH (19:43)
[2022-06-18] MEDS: ARIPiprazole 2 MG TAB PO SCH (19:43)
[2022-06-19 06:11] VITALS: BP 97/53
[2022-06-19] MEDS: NICOTINE 21MG/24HR 1 EA TRANSDERMAL TD SCH (09:41)
[2022-06-19] MEDS: LITHIUM CARBONATE 300 MG CAP PO SCH ×2 (09:43→20:21)
[2022-06-19] MEDS: [UNRECOGNIZED DRUG - OTHER] TOP SCH (09:43)
[2022-06-19] MEDS: TESTOSTERONE TOP SCH (09:43)
[2022-06-19] MEDS: cloNIDine 0.1MG TABLET PO SCH ×2 (09:44→20:24)
[2022-06-19] MEDS: SERTRALINE 100 MG TAB PO SCH (09:44)
[2022-06-19] MEDS: hydrOXYzine 50 MG TAB PO PRN (13:02)
[2022-06-19] MEDS: DOCUSATE SODIUM 100MG CAPSULE PO PRN (15:29)
[2022-06-19] MEDS: MIRALAX *UNIT DOSE* 17GM PACKET PO PRN (16:49)
[2022-06-19 18:24] VITALS: BP 107/70
[2022-06-19] MEDS: ARIPiprazole 2 MG TAB PO SCH (20:21)
[2022-06-19] MEDS: MIRTAZAPINE 15 MG TAB PO SCH (20:22)
[2022-06-19] MEDS: traZODone 50 MG TAB PO PRN (20:22)
[2022-06-19] MEDS: PRAZOSIN 1 MG CAP PO SCH (20:24)
[2022-06-20 06:09] VITALS: BP 106/54
[2022-06-20] MEDS: SERTRALINE 100 MG TAB PO SCH (08:32)
[2022-06-20] MEDS: NICOTINE 21MG/24HR 1 EA TRANSDERMAL TD SCH (08:32)
[2022-06-20] MEDS: LITHIUM CARBONATE 300 MG CAP PO SCH ×2 (08:32→20:36)
[2022-06-20] MEDS: cloNIDine 0.1MG TABLET PO SCH ×2 (08:34→20:36)
[2022-06-20] MEDS: [UNRECOGNIZED DRUG - OTHER] TOP SCH (08:39)
[2022-06-20] MEDS: TESTOSTERONE TOP SCH (08:39)
[2022-06-20 16:12] VITALS: BP 111/65
[2022-06-20] MEDS: hydrOXYzine 50 MG TAB PO PRN (17:24)
[2022-06-20] MEDS: traZODone 50 MG TAB PO PRN (20:36)
[2022-06-20] MEDS: PRAZOSIN 1 MG CAP PO SCH (20:36)
[2022-06-20] MEDS: ARIPiprazole 2 MG TAB PO SCH (20:36)
[2022-06-20] MEDS: MIRTAZAPINE 15 MG TAB PO SCH (20:36)
[2022-06-21 06:37] VITALS: BP 114/58
[2022-06-21] MEDS: LITHIUM CARBONATE 300 MG CAP PO SCH ×2 (08:14→21:31)
[2022-06-21] MEDS: SERTRALINE 100 MG TAB PO SCH (08:14)
[2022-06-21] MEDS: [UNRECOGNIZED DRUG - OTHER] TOP SCH (08:14)
[2022-06-21] MEDS: TESTOSTERONE TOP SCH (08:14)
[2022-06-21] MEDS: cloNIDine 0.1MG TABLET PO SCH ×2 (08:16→21:31)
[2022-06-21] MEDS: NICOTINE 21MG/24HR 1 EA TRANSDERMAL TD SCH (08:16)
[2022-06-21] MEDS: MIRALAX *UNIT DOSE* 17GM PACKET PO PRN (13:19)
[2022-06-21] MEDS: hydrOXYzine 50 MG TAB PO PRN (16:05)
[2022-06-21 16:13] VITALS: BP 98/58
[2022-06-21] MEDS: PRAZOSIN 1 MG CAP PO SCH (21:31)
[2022-06-21] MEDS: MIRTAZAPINE 15 MG TAB PO SCH (21:31)
[2022-06-21] MEDS: traZODone 50 MG TAB PO SCH (21:31)
[2022-06-21] MEDS: ARIPiprazole 2 MG TAB PO SCH (21:31)
[2022-06-22 06:23] VITALS: BP 118/76
[2022-06-22] MEDS: NICOTINE 21MG/24HR 1 EA TRANSDERMAL TD SCH (09:30)
[2022-06-22] MEDS: SERTRALINE 100 MG TAB PO SCH (09:30)
[2022-06-22] MEDS: LITHIUM CARBONATE 300 MG CAP PO SCH ×2 (09:30→20:40)
[2022-06-22] MEDS: cloNIDine 0.1MG TABLET PO SCH ×2 (09:31→20:39)
[2022-06-22] MEDS: [UNRECOGNIZED DRUG - OTHER] TOP SCH (09:32)
[2022-06-22] MEDS: TESTOSTERONE TOP SCH (09:32)
[2022-06-22] MEDS: hydrOXYzine 50 MG TAB PO PRN ×2 (15:10→21:28)
[2022-06-22] MEDS: MIRALAX *UNIT DOSE* 17GM PACKET PO PRN (15:10)
[2022-06-22 16:33] VITALS: BP 106/60
[2022-06-22] MEDS ORDERED: OLANZapine ORAL DISINTEGRATING TAB 5MG PO STA (18:41)
[2022-06-22] MEDS: PRAZOSIN 1 MG CAP PO SCH (20:39)
[2022-06-22] MEDS: ARIPiprazole 2 MG TAB PO SCH (20:39)
[2022-06-22] MEDS: MIRTAZAPINE 15 MG TAB PO SCH (20:39)
[2022-06-22] MEDS: traZODone 50 MG TAB PO SCH (20:40)
[2022-06-23 06:24] VITALS: BP 93/56
[2022-06-23] MEDS: NICOTINE 21MG/24HR 1 EA TRANSDERMAL TD SCH (09:00)
[2022-06-23] MEDS ORDERED: MIRT-10 PO (09:08)
[2022-06-23] MEDS ORDERED: ABIL1TAB11 PO (09:08)
[2022-06-23] MEDS ORDERED: MINI1CAP PO (09:08)
[2022-06-23] MEDS ORDERED: ABIL1TAB13 PO (09:08)
[2022-06-23] MEDS ORDERED: CLONI1TA PO (09:08)
[2022-06-23] MEDS ORDERED: TRAZ-252 PO (09:08)
[2022-06-23] MEDS ORDERED: ZOLO100T PO (09:08)
[2022-06-23] MEDS ORDERED: LITH300C PO (09:08)
[2022-06-23] MEDS: LITHIUM CARBONATE 300 MG CAP PO SCH (09:48)
[2022-06-23 09:49] VITALS: BP 142/70
[2022-06-23] MEDS: SERTRALINE 100 MG TAB PO SCH (09:49)
[2022-06-23] MEDS: cloNIDine 0.1MG TABLET PO SCH (09:49)
[2022-06-23] MEDS: [UNRECOGNIZED DRUG - OTHER] TOP SCH (09:58)
[2022-06-23] MEDS: TESTOSTERONE TOP SCH (09:58)
== END 2022-06-23 11:09 | disposition home or self-care (01) | DRG 885 ==
LOC: M ED 13:52 → M ED INP 17:57 → M PSY 21:47
PROVIDERS: ADMIT Student in an Organized Health Care Education/Training Program; ATTEND Student in an Organized Health Care Education/Training Program
DX: F33.1 Major depressive disorder, recurrent, moderate (principal); R45.851 Suicidal ideations; F43.10 Post-traumatic stress disorder, unspecified; F41.1 Generalized anxiety disorder; F40.11 Social phobia, generalized; F50.9 Eating disorder, unspecified; G25.71 Drug induced akathisia; F60.3 Borderline personality disorder; Z62.810 Personal history of physical and sexual abuse in childhood; R45.850 Homicidal ideations; K58.9 Irritable bowel syndrome, unspecified; M41.9 Scoliosis, unspecified; F17.200 Nicotine dependence, unspecified, uncomplicated; Z20.822 Contact with and (suspected) exposure to COVID-19; Z79.890 Hormone replacement therapy; Z79.899 Other long term (current) drug therapy; Z88.0 Allergy status to penicillin; Z91.51 Personal history of suicidal behavior

== ENCOUNTER 2022-07-03 13:36 | Inpatient (IN) | payer OTHER ==
[~2022-07-03] VITALS: Ht 149.9 cm; Wt 61.4 kg
[~2022-07-03 13:36] MED LIST changes: +ARIP1TAB4 PO; +BENZ0.5T23 PO; +DICY10CA13 PO; +DICY10SO PO; +GUAN1TA PO; +GUAN1TAB16 PO; +MIRT-10 PO; +TEST1GEL10 TD; +TRAZ-252 PO
[2022-07-03 14:20] LABS: HEMATOCRIT 42.8 % (36.0-47.0); MEAN CORPUSCULAR HEMOGLOBIN 29.4 pg (27.0-33.0); MEAN CORPUSCULAR HGB CONC 32.7 g/dl (32.0-36.5); MEAN CORPUSCULAR VOLUME 89.7 fl (80.0-96.0); PLATELET COUNT, AUTOMATED 284 10^3/uL (150-450); RED BLOOD COUNT 4.77 10^6/uL (4.00-5.40); WHITE BLOOD COUNT 8.5 10^3/uL (4.0-10.0)
[2022-07-03 14:44] LABS: HCG, SERUM QUALITATIVE NEGATIVE (NEGATIVE)
[2022-07-03 14:50] LABS: AMPHETAMINES LEVEL URINE NEGATIVE (NEGATIVE); BARBITURATES URINE NEGATIVE (NEGATIVE); BENZODIAZEPINES URINE NEGATIVE (NEGATIVE); CANNABINOIDS URINE NEGATIVE (NEGATIVE); COCAINE METABOLITE URINE NEGATIVE (NEGATIVE); METHADONE URINE NEGATIVE (NEGATIVE); OPIATES URINE NEGATIVE (NEGATIVE); PHENCYCLIDINE URINE NEGATIVE (NEGATIVE)
[2022-07-03 14:58] LABS: RSV AMPLIFICATION NEGATIVE (NEGATIVE)
[2022-07-03 15:01] LABS: ACETAMINOPHEN LEVEL < 2.0 UG/ML (10.0-30.0); ALBUMIN 4.1 GM/DL (3.2-5.2); ALT/SGPT 33 U/L (12-78); BILIRUBIN,DIRECT 0.1 MG/DL (0.0-0.2); BILIRUBIN,TOTAL 0.6 MG/DL (0.2-1.0); BLOOD UREA NITROGEN 11 MG/DL (7-18); CARBON DIOXIDE LEVEL 25 MEQ/L (21-32); CHLORIDE LEVEL 110 MEQ/L (98-107); CREATININE FOR GFR 0.77 MG/DL (0.55-1.30); ETHYL ALCOHOL (ETHANOL) 0.005 % (0.000-0.010); GLOMERULAR FILTRATION RATE > 60.0 (>60); GLUCOSE, FASTING 101 MG/DL (70-100); SALICYLATE LEVEL < 1.7 MG/DL (5.0-30.0); SODIUM LEVEL 142 MEQ/L (136-145); TOTAL PROTEIN 7.1 GM/DL (6.4-8.2)
[2022-07-03] MEDS ORDERED: PRAZ1CAP PO (16:49)
[2022-07-03] MEDS ORDERED: TRAZ-186 PO (16:49)
[2022-07-03] MEDS ORDERED: MIRA3350 PO (16:49)
[2022-07-03] MEDS ORDERED: ZOLO100T PO (16:49)
[2022-07-03] MEDS ORDERED: ABIL1TAB11 PO (16:49)
[2022-07-03] MEDS ORDERED: MIRT1TAB15 PO (16:49)
[2022-07-03] MEDS ORDERED: ABIL1TAB13 PO (16:49)
[2022-07-03] MEDS ORDERED: LITH300T2 PO (16:49)
[2022-07-03] MEDS ORDERED: TEST1GEL10 TD (16:51)
[2022-07-03] MEDS ORDERED: HOME MED LIST COMPLETE! XX SCH (16:55)
[2022-07-03] MEDS: LITHIUM CARBONATE 300 MG CAP PO SCH (20:36)
[2022-07-03] MEDS ORDERED: PRAZOSIN 1 MG CAP PO SCH (21:00)
[2022-07-03] MEDS ORDERED: ARIPiprazole 2 MG TAB PO SCH (21:00)
[2022-07-03] MEDS ORDERED: MIRTAZAPINE 15 MG TAB PO SCH (21:00)
[2022-07-03] MEDS ORDERED: traZODone 50 MG TAB PO SCH (21:00)
[2022-07-03] MEDS ORDERED: cloNIDine 0.1MG TABLET PO SCH (21:00)
[2022-07-04] MEDS ORDERED: TESTOSTERONE TOP SCH (09:00)
[2022-07-04] MEDS ORDERED: SERTRALINE 100 MG TAB PO SCH ×2 (09:00)
[2022-07-04] MEDS: LITHIUM CARBONATE 300 MG CAP PO SCH ×2 (09:16→20:09)
[2022-07-04] MEDS: NICOTINE 21MG/24HR 1 EA TRANSDERMAL TD SCH (15:20)
[2022-07-04] MEDS: ARIPiprazole 2 MG TAB PO SCH (20:09)
[2022-07-04] MEDS: PRAZOSIN 1 MG CAP PO SCH (20:09)
[2022-07-04] MEDS: traZODone 50 MG TAB PO SCH (20:09)
[2022-07-04] MEDS: MIRTAZAPINE 15 MG TAB PO SCH (20:09)
[2022-07-05 06:29] VITALS: BP 114/57
[2022-07-05] MEDS: NICOTINE 21MG/24HR 1 EA TRANSDERMAL TD SCH (09:48)
[2022-07-05] MEDS: LITHIUM CARBONATE 300 MG CAP PO SCH ×2 (09:49→19:56)
[2022-07-05] MEDS: SERTRALINE 100 MG TAB PO SCH (09:49)
[2022-07-05] MEDS: TESTOSTERONE TOP SCH (13:04)
[2022-07-05] MEDS: OLANZapine 2.5MG TABLET PO PRN (15:05)
[2022-07-05 16:16] VITALS: BP 120/80
[2022-07-05] MEDS: ARIPiprazole 2 MG TAB PO SCH (19:55)
[2022-07-05] MEDS: PRAZOSIN 1 MG CAP PO SCH (19:56)
[2022-07-05] MEDS: traZODone 50 MG TAB PO SCH (19:56)
[2022-07-05] MEDS: MIRTAZAPINE 15 MG TAB PO SCH (19:57)
[2022-07-06 06:20] VITALS: BP 117/80
[2022-07-06] MEDS: NICOTINE 21MG/24HR 1 EA TRANSDERMAL TD SCH (08:28)
[2022-07-06] MEDS: SERTRALINE 100 MG TAB PO SCH (08:29)
[2022-07-06] MEDS: LITHIUM CARBONATE 300 MG CAP PO SCH ×2 (08:29→20:03)
[2022-07-06] MEDS: TESTOSTERONE TOP SCH (08:31)
[2022-07-06] MEDS: OLANZapine 2.5MG TABLET PO PRN (14:04)
[2022-07-06 16:29] VITALS: BP 122/78
[2022-07-06] MEDS: OLANZapine 2.5MG TABLET PO SCH (20:03)
[2022-07-06] MEDS: traZODone 50 MG TAB PO SCH (20:03)
[2022-07-06] MEDS: MIRTAZAPINE 15 MG TAB PO SCH (20:03)
[2022-07-06] MEDS: ARIPiprazole 2 MG TAB PO SCH (20:03)
[2022-07-06] MEDS: PRAZOSIN 1 MG CAP PO SCH (20:05)
[2022-07-07 06:08] VITALS: BP 130/59
[2022-07-07] MEDS: TESTOSTERONE TOP SCH (09:22)
[2022-07-07] MEDS: OLANZapine 2.5MG TABLET PO SCH (09:23)
[2022-07-07] MEDS: SERTRALINE 100 MG TAB PO SCH (09:23)
[2022-07-07] MEDS: LITHIUM CARBONATE 300 MG CAP PO SCH ×2 (09:23→22:43)
[2022-07-07] MEDS: NICOTINE 21MG/24HR 1 EA TRANSDERMAL TD SCH (09:24)
[2022-07-07] MEDS ORDERED: ACETAMINOPHEN TAB 650MG DOSE (2X325MG) PO PRN (11:55)
[2022-07-07] MEDS: OLANZapine 2.5MG TABLET PO PRN (16:40)
[2022-07-07 18:26] VITALS: BP 145/85
[2022-07-07] MEDS: ARIPiprazole 2 MG TAB PO SCH (22:41)
[2022-07-07] MEDS: traZODone 50 MG TAB PO SCH (22:41)
[2022-07-07] MEDS: MIRTAZAPINE 15 MG TAB PO SCH (22:42)
[2022-07-07] MEDS: OLANZapine 5 MG TAB PO SCH (22:42)
[2022-07-07] MEDS: PRAZOSIN 1 MG CAP PO SCH (22:46)
[2022-07-08 06:06] VITALS: BP 119/63
[2022-07-08] MEDS: NICOTINE 21MG/24HR 1 EA TRANSDERMAL TD SCH (09:46)
[2022-07-08] MEDS: SERTRALINE 100 MG TAB PO SCH (09:46)
[2022-07-08] MEDS: OLANZapine 5 MG TAB PO SCH ×2 (09:47→20:49)
[2022-07-08] MEDS: LITHIUM CARBONATE 300 MG CAP PO SCH ×2 (09:47→20:49)
[2022-07-08] MEDS: TESTOSTERONE TOP SCH (09:52)
[2022-07-08] MEDS: MIRALAX *UNIT DOSE* 17GM PACKET PO PRN (14:20)
[2022-07-08] MEDS: OLANZapine 2.5MG TABLET PO PRN (15:21)
[2022-07-08 16:16] VITALS: BP 129/77
[2022-07-08] MEDS: traZODone 50 MG TAB PO SCH (20:49)
[2022-07-08] MEDS: ARIPiprazole 2 MG TAB PO SCH (20:49)
[2022-07-08] MEDS: MIRTAZAPINE 15 MG TAB PO SCH (20:49)
[2022-07-08] MEDS: PRAZOSIN 1 MG CAP PO SCH (20:51)
[2022-07-09 06:17] VITALS: BP 116/56
[2022-07-09] MEDS: OLANZapine 5 MG TAB PO SCH ×2 (08:57→20:33)
[2022-07-09] MEDS: SERTRALINE 100 MG TAB PO SCH (08:58)
[2022-07-09] MEDS: LITHIUM CARBONATE 300 MG CAP PO SCH ×2 (08:58→20:33)
[2022-07-09] MEDS: NICOTINE 21MG/24HR 1 EA TRANSDERMAL TD SCH (08:59)
[2022-07-09] MEDS: TESTOSTERONE TOP SCH (09:02)
[2022-07-09] MEDS: OLANZapine 2.5MG TABLET PO PRN (12:44)
[2022-07-09] MEDS ORDERED: BENZTROPINE 1 MG TAB PO ONE (14:00)
[2022-07-09 16:13] VITALS: BP 142/83
[2022-07-09] MEDS: MIRALAX *UNIT DOSE* 17GM PACKET PO PRN (20:32)
[2022-07-09] MEDS: traZODone 50 MG TAB PO SCH (20:33)
[2022-07-09] MEDS: ARIPiprazole 2 MG TAB PO SCH (20:33)
[2022-07-09] MEDS: MIRTAZAPINE 15 MG TAB PO SCH (20:33)
[2022-07-09] MEDS: PRAZOSIN 1 MG CAP PO SCH (20:33)
[2022-07-10] MEDS: LITHIUM CARBONATE 300 MG CAP PO SCH ×2 (09:14→20:18)
[2022-07-10] MEDS: OLANZapine 5 MG TAB PO SCH ×2 (09:14→20:18)
[2022-07-10] MEDS: SERTRALINE 100 MG TAB PO SCH (09:14)
[2022-07-10] MEDS: TESTOSTERONE TOP SCH (09:14)
[2022-07-10] MEDS: NICOTINE 21MG/24HR 1 EA TRANSDERMAL TD SCH (09:19)
[2022-07-10] MEDS: BENZTROPINE 0.5 MG TAB PO SCH ×2 (14:04→20:17)
[2022-07-10 16:11] VITALS: BP 127/74
[2022-07-10] MEDS: MIRALAX *UNIT DOSE* 17GM PACKET PO PRN (18:38)
[2022-07-10] MEDS: MIRTAZAPINE 15 MG TAB PO SCH (20:17)
[2022-07-10] MEDS: traZODone 50 MG TAB PO SCH (20:17)
[2022-07-10] MEDS: PRAZOSIN 1 MG CAP PO SCH (20:17)
[2022-07-10] MEDS: ARIPiprazole 2 MG TAB PO SCH (20:17)
[2022-07-11 06:27] VITALS: BP 125/85
[2022-07-11] MEDS: NICOTINE 21MG/24HR 1 EA TRANSDERMAL TD SCH (09:00)
[2022-07-11] MEDS: TESTOSTERONE TOP SCH (09:24)
[2022-07-11] MEDS: OLANZapine 5 MG TAB PO SCH ×2 (09:24→22:11)
[2022-07-11] MEDS: SERTRALINE 100 MG TAB PO SCH (09:24)
[2022-07-11] MEDS: BENZTROPINE 0.5 MG TAB PO SCH ×2 (09:25→22:11)
[2022-07-11] MEDS: LITHIUM CARBONATE 300 MG CAP PO SCH ×2 (09:25→22:11)
[2022-07-11 18:11] VITALS: BP 129/77
[2022-07-11] MEDS: MIRALAX *UNIT DOSE* 17GM PACKET PO PRN (19:38)
[2022-07-11] MEDS: MIRTAZAPINE 15 MG TAB PO SCH (22:11)
[2022-07-11] MEDS: ARIPiprazole 2 MG TAB PO SCH (22:11)
[2022-07-11] MEDS: traZODone 50 MG TAB PO SCH (22:11)
[2022-07-11 22:12] VITALS: BP 124/85
[2022-07-11] MEDS: PRAZOSIN 1 MG CAP PO SCH (22:12)
[2022-07-12 06:28] VITALS: BP 123/74
[2022-07-12] MEDS: NICOTINE 21MG/24HR 1 EA TRANSDERMAL TD SCH (08:23)
[2022-07-12] MEDS: OLANZapine 5 MG TAB PO SCH (08:24)
[2022-07-12] MEDS: BENZTROPINE 0.5 MG TAB PO SCH (08:24)
[2022-07-12] MEDS: LITHIUM CARBONATE 300 MG CAP PO SCH (08:25)
[2022-07-12] MEDS: SERTRALINE 100 MG TAB PO SCH (08:25)
[2022-07-12] MEDS: TESTOSTERONE TOP SCH (08:26)
[2022-07-12] MEDS ORDERED: ZOLO100T PO (09:34)
[2022-07-12] MEDS ORDERED: ABIL1TAB13 PO (09:34)
[2022-07-12] MEDS ORDERED: MIRT1TAB15 PO (09:34)
[2022-07-12] MEDS ORDERED: PRAZ1CAP PO (09:34)
[2022-07-12] MEDS ORDERED: LITH300T2 PO (09:34)
[2022-07-12] MEDS ORDERED: OLAN2.5T25 PO (09:35)
[2022-07-12] MEDS ORDERED: TRAZ-186 PO (09:35)
[2022-07-12] MEDS ORDERED: NICO21PAT TD (09:35)
[2022-07-12] MEDS ORDERED: OLAN1TAB16 PO (09:35)
[2022-07-12] MEDS ORDERED: BENZ0.5T23 PO (09:35)
[2022-07-12] MEDS: OLANZapine 2.5MG TABLET PO PRN (11:29)
== END 2022-07-12 13:03 | disposition home or self-care (01) | DRG 885 ==
LOC: EDSEX 13:36 → M ED 13:36 → M ED INP 07-04 11:50 → M PSY 07-04 13:31
PROVIDERS: ADMIT Student in an Organized Health Care Education/Training Program; ATTEND Student in an Organized Health Care Education/Training Program
DX: F33.1 Major depressive disorder, recurrent, moderate (principal); R45.851 Suicidal ideations; F43.10 Post-traumatic stress disorder, unspecified; F79 Unspecified intellectual disabilities; F41.1 Generalized anxiety disorder; F60.3 Borderline personality disorder; F50.9 Eating disorder, unspecified; Z79.899 Other long term (current) drug therapy; Z88.0 Allergy status to penicillin